=== PATIENT | male | born 1955 | race Caucasian/White ===

== ENCOUNTER → 2016-10-01 | Day surgery (SDC) | payer OTHER ==
[~2016-10-01] MED LIST: 24 HOUR ALLER15.8 ML INH; ADVIL COLD & SI1 TA2 PO; ALBUTEROL17 GM INH; DESYREL50 MG PO; FLONASE 0.05% N16 GM; HYDROCHLOROTHIA25 MG PO; LISINOPRIL PO; LISINOPRIL20 MG PO; LO-DOSE ASPIRIN81 M1 PO; OXYCODON-ACETA1 EAC1 PO; PRINIVIL5 MG PO; PROZAC PO; REQUIP0.25 MG PO; SEROQUEL50 M1 PO; SYMBICORT INH; TRAZODONE HCL150 MG PO; TUDORZA PRESS400 MCG INH; VENLAFAXINE HC150 MG PO; VENTOLIN5 MG/ML INH
--- NOTE | ~2016-10-01 | OR ---
Unit #: [id number] #: [id number] Patient: SOURAV DILL [id number] [address] [place], [place] [address] [id number] O MR#: [id number] NAME: SOURAV DILL ROOM: Date of Procedure: 10/01/2016 Admission Date: 10/01/2016 Surgeon: Harlan Saab M.D. : 1955 Attending Physician: Harlan Saab M.D. Primary Care Physician: Riana Dooley M.D. OPERATIVE REPORT PREOPERATIVE DIAGNOSIS Screening upper endoscopy for lap band procedure. POSTOPERATIVE DIAGNOSIS Normal. PROCEDURE PERFORMED Esophagogastroduodenoscopy with biopsy for Helicobacter pylori. ANESTHESIA IV sedation. COMPLICATIONS None. INDICATIONS FOR PROCEDURE The patient is a 61-year-old gentleman, who was set up for bariatric surgery. There is a prerequisite that he requires EGD evaluation. DESCRIPTION OF PROCEDURE The patient was taken to the operative theater and placed in left lateral decubitus position. IV sedation was initiated. EGD scope was passed under direct vision into the esophagus. Esophagus was grossly normal. Stomach was also normal. Duodenum was normal. A biopsy was taken for H. pylori. He tolerated the procedure well and sent to the recovery room in good condition. Dictated by... Wendy La/stephaniel TD: 10/02/2016 05:11 JOB #: [id number] Unit #: [id number] #: [id number] Patient: SOURAV DILL OPERATIVE REPORT X Harlan Saab MD X PROCEDURE OPERATIVE NOTE
== END | disposition home or self-care (01) ==
LOC: COPS 12:11
DX: Z13.810 Encounter for screening for upper gastrointestinal disorder (principal); I10 Essential (primary) hypertension; J44.9 Chronic obstructive pulmonary disease, unspecified; J40 Bronchitis, not specified as acute or chronic; E66.01 Morbid (severe) obesity due to excess calories; G25.81 Restless legs syndrome; F41.9 Anxiety disorder, unspecified; F31.9 Bipolar disorder, unspecified; Z68.42 Body mass index [BMI] 45.0-49.9, adult; Z79.82 Long term (current) use of aspirin; Z79.891 Long term (current) use of opiate analgesic; Z79.899 Other long term (current) drug therapy; Z90.89 Acquired absence of other organs; Z98.890 Other specified postprocedural states
CPT/HCPCS: 87077

== ENCOUNTER → 2016-10-12 | Outpatient (CLI) | payer OTHER | END | disposition home or self-care (01) | LOC: CBAR 14:47 | DX: Z01.818 Encounter for other preprocedural examination (principal); E66.01 Morbid (severe) obesity due to excess calories | CPT/HCPCS: G0463 ==

== ENCOUNTER → 2016-11-05 | Outpatient (CLI) | payer OTHER ==
--- NOTE | ~2016-11-05 | EKG ---
PATIENT: SOURAV DILL UNIT #: [id number] Ventricular Rate: 70 BPM Atrial Rate: 70 BPM P-R Interval: 142 ms QRS Duration: 108 ms Q-T Interval: 408 ms QTC Calculation(Bezet): 440 ms P [place]: 72 degrees Calculated R [place]: 90 degrees Calculated T [place]: 46 degrees Diagnosis Line: Normal sinus rhythm Diagnosis Line: Rightward axis Diagnosis Line: Borderline ECG Diagnosis Line: When compared with ECG of 22-JAN-2016 12:49, Diagnosis Line: Incomplete right bundle branch block is no longer Diagnosis Line: Present Diagnosis Line: Confirmed by ANGEL RAYMUNDO MD ([id number]) on 11/05/2016 Diagnosis Line: 7:21:59 PM INTERPRETING MD: ZACKARY DEL RIO
--- NOTE | ~2016-11-05 | CR97 ---
[facility] A Service of [facility] RADIOLOGY TEXT RESULTS PATIENT: SOURAV DILL [id number] : 55 UNIT #: [id number] AGE: [address]: Harlan Saab MD SEX: M ORDER DR: [id number] [facility] [address] [place], [place] [address] [id number] O MR#: [id number] Acc #: [id number] NAME: SOURAV DILL : 1955 SEX: M STUDY DATE/TIME: 11/05/2016 8:48 UNIT: [facility] ROOM: STUDY DESCRIPTION: CR Esophagram Attending Physician: Harlan Saab M.D. Referring Physician: Harlan Saab M.D. Ordering Physician: Harlan Saab M.D. Primary Care Physician: Tony Mistry M.D. MEDICAL IMAGING REPORT This report is preliminary unless electronic signature is present EXAM Esophagram INDICATIONS Preop evaluation for laparoscopic banding. COMPARISON None available. FINDINGS The proximal and mid thoracic esophagus are normal. No significant mucosal abnormalities. There is some mild smooth narrowing of the distal thoracic esophagus approximately 3-4 cm from the EG junction. This does not appear to be a significant stenosis, however, the 13 mm barium tablet was temporarily lodged at this area. Eventually passed after approximately 3-4 minutes. Consider evaluation with EGD to further assess the presumed benign stricture. No suspicious or malignant features are identified. No hiatal hernia. Esophageal motility is within normal limits. Fluoroscopic time 1.7 minutes, 27 images acquired. IMPRESSION Mild smooth narrowing of the distal thoracic esophagus consistent with a small stricture. Imaging appearance did not appear to be significant, however, there was delayed passage of the 13 mm barium tablet through this area. No aggressive or malignant features identified. Consider further evaluation with an EGD. Dictated by... Ivan Lopez M.D. THIS IS AN ELECTRONICALLY VERIFIED REPORT [facility] A Service of [facility] RADIOLOGY TEXT RESULTS PATIENT: SOURAV DILL LOCATION: [facility] #: [id number] : 55 UNIT #: [id number] AGE: [address]: Harlan Saab MD SEX: M ORDER DR: Ivan Lopez M.D. at 11/05/2016 3:12 PM ASIM/pablo TD: 11/05/2016 10:23 JOB #: [id number] MEDICAL IMAGING REPORT Page 1 of 1 COPY
--- NOTE | ~2016-11-05 | CR63 ---
[facility] A Service of [facility] RADIOLOGY TEXT RESULTS PATIENT: SOURAV DILL LOCATION: [facility] : 55 UNIT #: [id number] AGE: [address]: Harlan Saab MD SEX: M ORDER DR: [id number] [facility] [address] [place], [place] [address] [id number] O MR#: [id number] Acc #: [id number] NAME: SOURAV DILL : 1955 SEX: M STUDY DATE/TIME: 11/05/2016 7:45 UNIT: [facility] ROOM: STUDY DESCRIPTION: CR Chest 2 View Attending Physician: Harlan Saab M.D. Referring Physician: Harlan Saab M.D. Ordering Physician: Harlan Saab M.D. Primary Care Physician: Tony Mistry M.D. MEDICAL IMAGING REPORT This report is preliminary unless electronic signature is present EXAM Chest 11/05/2016, [facility]. HISTORY 61-year-old male patient preop clearance for laparoscopic adjustable gastric band placement and possible paraesophageal hernia repair. Short of air, cough, 40-year smoking history, morbid obesity. COMPARISON Chest, 04/10/2015. FINDINGS Two-view chest demonstrates large body habitus. Cardiac size and configuration are normal. Lungs are mildly hyperinflated but clear bilaterally. There is flattening of hemidiaphragms. Bony thorax appears normal. IMPRESSION Generalized pulmonary hyperinflation bilaterally. Morbid obesity. No acute chest finding. Dictated by... Gabriele Ghosh M.D. THIS IS AN ELECTRONICALLY VERIFIED REPORT Gabriele Ghosh M.D. at 11/05/2016 12:38 PM MAYE/nadia TD: 11/05/2016 10:15 JOB #: [id number] [facility] A Service of [facility] RADIOLOGY TEXT RESULTS PATIENT: SOURAV DILL LOCATION: [facility] #: [id number] : 55 UNIT #: [id number] AGE: [address]: Harlan Saab MD SEX: M ORDER DR: MEDICAL IMAGING REPORT Page 1 of 1 COPY
[2016-11-05 09:27] LABS: HEMATOCRIT 53.4 % (38.0-50.0); HEMOGLOBIN 17.9 gm/dL (13.0-16.0); MEAN CORPUSCULAR HEMOGLOBIN 35.2 PG (28-34); MEAN CORPUSCULAR HGB CONC 33.5 g/dL (30-36); RED BLOOD COUNT 5.09 X10e (3.90-5.60); RED CELL DISTRIBUTION WIDTH 13.4 % (11.0-15.5); WHITE BLOOD COUNT 11.4 X10e3 (4.0-10.5)
[2016-11-05 10:16] LABS: ALBUMIN SERUM 3.4 g/dL (3.5-5.0); BILIRUBIN,TOTAL 0.7 mg/dL (0.2-2.0); BUN/CREATININE RATIO 17.77; CALCIUM SERUM 9.3 mg/dL (8.4-10.2); CREATININE SERUM 0.9 mg/dL (0.6-1.4); GLOM FILT RATE Estimated 91.9 mL/min (>60); POTASSIUM 4.2 mmol/L (3.5-5.1); PROTEIN TOTAL SERUM 6.5 g/dL (6.0-8.3)
== END | disposition home or self-care (01) ==
LOC: CRAD 07:37
PROVIDERS: Surgery
DX: Z01.818 Encounter for other preprocedural examination (principal); E66.01 Morbid (severe) obesity due to excess calories; R91.8 Other nonspecific abnormal finding of lung field; K22.2 Esophageal obstruction
CPT/HCPCS: 36415; 71020; 74220; 80053; 80061; 84443; 85027; 93005

== ENCOUNTER → 2016-11-17 | Day surgery (SDC) | payer OTHER ==
--- NOTE | ~2016-11-17 | CR7 ---
[facility] A Service of [facility] RADIOLOGY TEXT RESULTS PATIENT: SOURAV DILL LOCATION: [facility] : 55 UNIT #: [id number] AGE: [address]: Harlan Saab MD SEX: M ORDER DR: [id number] [facility] [address] [place], [place] [address] [id number] O MR#: [id number] Acc #: [id number] NAME: SOURAV DILL : 1955 SEX: M STUDY DATE/TIME: 11/17/2016 10:07 UNIT: [facility] ROOM: STUDY DESCRIPTION: CR Abdomen Single AP View Attending Physician: Harlan Saab M.D. Ordering Physician: Harlan Saab M.D. Primary Care Physician: Riana Dooley M.D. MEDICAL IMAGING REPORT This report is preliminary unless electronic signature is present EXAM Supine radiograph abdomen 11/17/2016 HISTORY Postop Lap-Band. PACU back. FINDINGS Supine radiograph of the abdomen is presented. Status post Lap-Band device placement. The device is incompletely visualized on this radiograph. The band component is at the anticipated location of gastroesophageal junction based on esophagram dated 11/05/2016. Visualized portion of the catheter component is radiographically intact. Port component not fully visualized but appears implanted over left hemiabdomen. Visualized bowel gas pattern normal. No free air. Dictated by... Harlan Ramos M.D. THIS IS AN ELECTRONICALLY VERIFIED REPORT Harlan Ramos M.D. at 11/22/2016 6:37 PM EARNEST/daniel TD: 11/17/2016 12:03 JOB #: [id number] MEDICAL IMAGING REPORT Page 1 of 1 COPY
--- NOTE | ~2016-11-17 | OR ---
Unit #: [id number] #: [id number] Patient: SOURAV DILL [id number] [address] [address] [id number] O MR#: [id number] NAME: SOURAV DILL ROOM: Date of Procedure: 11/17/2016 Admission Date: 11/17/2016 Surgeon: Harlan Saab M.D. : 1955 Attending Physician: Harlan Saab M.D. Primary Care Physician: Riana Dooley M.D. OPERATIVE REPORT PREOPERATIVE DIAGNOSIS Chronic morbid obesity, body mass index 46. POSTOPERATIVE DIAGNOSES 1. Chronic morbid obesity, body mass index 46. 2. Paraesophageal hiatal hernia. PROCEDURES PERFORMED 1. Laparoscopic adjustable gastric band. 2. Laparoscopic paraesophageal hiatal hernia repair. ASSISTANT Álvaro Zeng M.D. ANESTHESIA General endotracheal anesthesia. ESTIMATED BLOOD LOSS Minimal. IV FLUIDS 800 crystalloid. COMPLICATIONS None. INDICATIONS FOR PROCEDURE The patient is a 61-year-old with chronic morbid obesity. DESCRIPTION OF PROCEDURE The patient was taken to the operating room and placed in supine position. General anesthesia was induced. The abdomen was prepped and draped. A 3-cm incision was then made left of the midline. A 10-mm Visiport was then placed intraabdominal under direct vision. The abdomen was insufflated to 15 mmHg with CO2. The patient was then placed in a steep reversed Trendelenburg. General inspection of the abdomen revealed what appeared to be a paraesophageal hernia. This was identified with a defect at the diaphragm using anterior palpation with the instrument. We then made a small incision in the subxiphoid region. A Noemy liver retractor was then placed intraabdominal and used to retract the left lobe of the liver upward to further expose the paraesophageal hernia and GE junction. I then placed a 5-mm port in the right upper quadrant, a 10-mm Unit #: [id number] #: [id number] Patient: SOURAV DILL port in the left upper quadrant, and another 5-mm port in the left lower quadrant. The stomach was retracted medial and downward. Upon retracting the stomach, we took down the paraesophageal ligament, exposing the right and left adriana at the paraesophageal hernia. Any hernia sac was reduced. We then repaired the paraesophageal hernia using interrupted #0 Ethibond sutures in a [id number] type fashion. This formed a snug repair to the anterior esophagus. We then retracted the stomach medially and further exposed the angle of His using Bovie electrocautery. The stomach was then retracted laterally. We then took down the hepatogastric ligament with Bovie electrocautery. This exposed the right adriana. Using blunt dissection, I created a retrogastric tunnel from this point to the angle of His. The band was then placed intraabdominal through the 10-mm port site. This was then brought through the retrogastric tunnel in a pars flaccida technique. The band was then closed anteriorly to form a 20-mL to 25-mL anterior gastric pouch. The fundus was then secured to the anterior pouch to prevent movement around the stomach using two interrupted #0 Ethibond sutures. A third suture was then used as a gathering stitch from the lesser curve to the anterior stomach, gathering and imbricating the remaining fundus of the stomach. The tubing was then brought out through the midline 10-mm port site. All ports and the Noemy liver retractor were removed under direct vision with no evidence of abdominal hemorrhage. A polypropylene mesh was then secured to the posterior face of the laparoscopic band port. This was secured using #0 Ethibond suture. This was then cut to shape. The port was then connected to the tubing and placed into a subcutaneous pocket just anterior to the rectus sheath. Its position was then confirmed. All tubing was then placed intraabdominal. The wounds were then closed with interrupted 4-0 Vicryl. The patient tolerated the procedure well and was sent to the recovery room in good condition. Dictated by... Wendy La/latrice TD: 11/17/2016 22:54 JOB #: [id number] OPERATIVE REPORT Page 1 of 1 X Harlan Saab MD PROCEDURE OPERATIVE NOTE
== END | disposition home or self-care (01) ==
LOC: CSUR 06:27
DX: E66.01 Morbid (severe) obesity due to excess calories (principal); K44.9 Diaphragmatic hernia without obstruction or gangrene; J44.9 Chronic obstructive pulmonary disease, unspecified; I10 Essential (primary) hypertension; R73.9 Hyperglycemia, unspecified; G47.30 Sleep apnea, unspecified; G43.909 Migraine, unspecified, not intractable, without status migrainosus; Z68.42 Body mass index [BMI] 45.0-49.9, adult; Z90.89 Acquired absence of other organs; Z79.82 Long term (current) use of aspirin; Z79.899 Other long term (current) drug therapy; Z86.73 Personal history of transient ischemic attack (TIA), and cerebral infarction without residual deficits; Z87.891 Personal history of nicotine dependence
CPT/HCPCS: 74000; C1781; J0330; J0690; J1650; J1885; J2250; J2405; J2710; J3010